=== PATIENT | female | born 1985 | race Two or more races ===

== ENCOUNTER 2016-10-16 07:30 | Inpatient (IN) | payer OTHER ==
[~2016-10-16 07:30] MED LIST: ELECTROLYTE-148 SOLN 1,000 ML IV ONE
[2016-10-16] MEDS ORDERED: CITRIC ACID/SODIUM CITRATE 30 ML UNIT-DOSE CUP PO ONE (08:13)
[2016-10-16] MEDS ORDERED: ELECTROLYTE-148 SOLN 1,000 ML IV SCH (08:15)
--- NOTE | 2016-10-16 09:18 | HP ---
Past Medical History - Admission Chief Complaint: Pt here for repeat c section. History of Present Illness: 31 y/o with SIUP at 39.2 weeks gestataion here for scheduled repeat section. Pt has complicated by A2GDM - has been on Novolog 6 units with meals and 5 units of levimir at night. BG this a.m. 101. BGs have been well controlled. Followed with MFM and Endocrine. Otherwise no other complications. +FM. No Vb/LOF/Ctx. HIV negative. HepBSag negative. O positive. Rubella Immune. History Source: Patient - Past Medical History RN CAMP: No: Alzheimer's, Migraine Cardiovascular: No: AFIB, HTN Pulmonary: No: Asthma, COPD Gastrointestinal: No: GERD Hepatobiliary: No: Cirrhosis, Hepatitis B Reproductive: No: Ectopic , Endometriosis, Fibroids ...: 4 ...Para: 1 ...Term: 1 ...: 0 ...Spon : 2 ...Induced : 0 ...Multiple Gestation: 0 ...LMP: 01/21/16 ... Weeks Gestation by Dates: 38.3 ...EDC by Dates: 10/27/16 ...EDC by Sono: 10/21/16 Infectious Disease: No: AIDS, HIV, MRSA Psych: No: Bipolar, Depression Rheumatology: No: Lupus, Rheumatoid Arthritis Endocrine: Yes: Diabetes Mellitus (gestational) - Past Surgical History Past Surgical History: Yes: Hx Myomectomy: No Hx Transabdominal Cerclage: No - Smoking History Smoking history: Never smoked Have you smoked in the past 12 months: No - Alcohol/Substance Use Hx Alcohol Use: No History of Substance Use: reports: None - Social History Usual Living Arrangement: Yes: With Spouse ADL: Independent History of Recent Travel: No Home Medications - Allergies Allergies/Adverse Reactions: Allergies Allergy/AdvReac Type Severity Reaction Status Date / Time No Known Drug Allergies Allergy Verified 10/16/16 08:17 - Home Medications Home Medications: Ambulatory Orders Pnv Comb.no58/Iron Bisgly/FA [ Capsule] 1 cap PO DAILY 08/22/11 Insulin Aspart [Novolog] 100 unit SQ TID 09/04/16 Insulin (Levemir) [Levemir Flexpen -] 5 units SQ DAILY 10/16/16 Review of Systems - Review of Systems Constitutional: reports: No Symptoms Eyes: reports: No Symptoms HENT: reports: No Symptoms Neck: reports: No Symptoms Cardiovascular: reports: No Symptoms Respiratory: reports: No Symptoms Gastrointestinal: reports: No Symptoms Genitourinary: reports: No Symptoms Breasts: reports: No Symptoms Reported Musculoskeletal: reports: No Symptoms Integumentary: reports: No Symptoms Neurological: reports: No Symptoms Endocrine: reports: No Symptoms Hematology/Lymphatic: reports: No Symptoms Psychiatric: reports: No Symptoms Physical Exam - Maternity Vital Signs: Vital Signs Temperature 97.5 F L 10/16/16 08:25 Pulse Rate 89 10/16/16 08:25 Respiratory Rate 18 10/16/16 08:25 Blood Pressure 120/67 10/16/16 08:25 O2 Sat by Pulse Oximetry (%) Constitutional: Yes: Well Nourished, No Distress, Calm Eyes: Yes: Conjunctiva Clear, EOM Intact HENT: Yes: Atraumatic, Normocephalic Neck: Yes: Supple, Trachea Midline Cardiovascular: Yes: Regular Rate and Rhythm Lungs: Clear to auscultation - Abdominal Exam/OB Number of Fetuses: Single Presentation: Vertex Contractions: No Category: I Accelerations: Uniform Decelerations: None - Vaginal Exam/OB Amniotic Membrane Status: Intact Presentation: Vertex/Position - Physical Exam Psychiatric: Yes: Alert, Oriented Hemorrhage Risk Assessment - Risk Factors Medium Risk Factors: Yes: Prior , uterine surgery,or multiple laparotomies High Risk Factors: Yes: None Risk Score: 1 Risk Level: Medium Risk Problem List - Problems (1) Gestational diabetes mellitus (GDM) affecting second Code(s): O24.419 - GESTATIONAL DIABETES MELLITUS IN , UNSP CONTROL O09.40 - SUPERVISION OF W GRAND MULTIPARITY, UNSP TRIMESTER (2) Term Code(s): Z34.80 - ENCOUNTER FOR SUPRVSN OF NORMAL , UNSP TRIMESTER (3) H/O section Code(s): Z98.891 - HISTORY OF UTERINE SCAR FROM PREVIOUS SURGERY Assessment/Plan 31 y/o with SIUP at 39.2 weeks here for repeat c section - AFVSS - FHTS reactive - A2GDM - hold home insulin, BG this a.m 101 - for repeat c section, NPO, SCDs, ancef preop, siegel catheter - nursing and anesthesia aware
[2016-10-16] MEDS ORDERED: ONDANSETRON 4 MG/2 ML VIAL IVPUSH PRN (09:57)
--- NOTE | 2016-10-16 09:59 | OP ---
Operative Note - Note: Operative Date: 10/16/16 Pre-Operative Diagnosis: Prior section, A2 gestational diabetes, term Operation: repeat low transverse section Findings: normal b/l tubes and ovaries gravid uterus otherwise normal female pelvic anatomy Surgeon: Harriet Friend Metal Dealer: Andrew Mercado Anesthesiologist/CLIMATOLOGY TEACHER: Vinay David Anesthesia: Spinal Specimens Removed: placenta, cord blood collection Estimated Blood Loss (mls): 500 Operative Report Dictated: Yes
[2016-10-16] MEDS ORDERED: oxyCODONE HCL 5 MG TABLET PO PRN (10:00)
[2016-10-16] MEDS: OXYTOCIN 20 UNITS in 0.9% NS 1,000 ML IV SCH ×2 (10:00→22:58)
[2016-10-16] MEDS ORDERED: METHYLERGONOVINE MALEATE 0.2 MG/1 ML AMP IM PRN (10:00)
--- NOTE | 2016-10-16 10:18 | PN ---
Delivery - Delivery Section: Repeat, Low Flap Transverse Type of Anesthesia: Spinal Episiotomy/Laceration: None EBL (cc): 500 Delivery, Single - Stages of Labor Date of Delivery: 10/16/16 Time of Delivery: 09:34 Date Placenta Delivered: 10/16/16 Time Placenta Delivered: :35 Placenta: Yes: Manual Removal - Condition of Book Canvasser/Software Support Analyst Present: Yes Infant Gender: Male Position: Left, OT - 1 Minute Total Score: 9 5 Minutes Total Score: 9 - [place] Feeding Plan Initial Plan: Exclusive throughout hospitalization Remarks - Remarks Remarks: Uncomplicated repeat low transverse section EBL 500cc mom stable baby to well baby nursery
[2016-10-16] MEDS: FERROUS SO4 325 MG TABLET (FP) PO SCH ×2 (11:12→21:28)
--- NOTE | 2016-10-16 12:11 | OP ---
DATE OF OPERATION: 10/16/2016 PREOPERATIVE DIAGNOSIS: Single intrauterine at 39+ weeks' gestation, previous section. POSTOPERATIVE DIAGNOSIS: Single intrauterine at 39+ weeks' gestation, previous section. PROCEDURE: Repeat low transverse section. SURGEON: Harriet Friend DO DYE RANGE OPERATOR: JAMI Quintana ANESTHESIA: Spinal administered by Vinay David MD ESTIMATED BLOOD LOSS: 500 mL. SPECIMENS: Included placenta and cord blood collection. COMPLICATIONS: None. Sponge, needle, and instrument count correct. DISPOSITION: Stable to recovery room. BRIEF HISTORY AND PROCEDURE: The patient is a 31-year-old female with a history of a prior section who declined trial of labor after section. The patient was scheduled for a repeat low transverse section on October 16, 2016. The patient was admitted to [facility] on October 16, 2016. Consents for the procedure were signed upon admission. The patient was then taken back to the operating room. She was given spinal anesthesia by Dr. David without difficulty. She was placed in the dorsal supine position, and a Wills catheter was placed under sterile conditions. She was then prepped and draped in the usual sterile fashion. A hard time-out was performed. A Pfannenstiel skin incision was created in the skin using a scalpel and the incision was carried to the underlying layer of rectus fascia with the scalpel. The rectus fascia was incised on either side of the midline with the Bovie, and the fascial incision was carried in a superolateral direction with the Bovie. The fascia was tented upwards with Marisol clamps and dissected off the underlying layer of rectus muscle. The rectus muscle was identified, bluntly. The peritoneum was entered bluntly, and the bladder blade was inserted. A bladder flap was created, and the bladder blade was readjusted to protect the bladder at this time. A transverse incision was created on the lower uterine segment with the scalpel, and this incision was carried in a superolateral direction bluntly. The was then delivered from the left occiput transverse position without difficulty. Bilateral shoulders and the remainder of the infant was delivered without difficulty. The cord was clamped twice and cut in between. The was taken over to the warmer to be assessed by Neonatology staff who was present for the entire delivery. scores were 9/ 9. The placenta was then delivered manually and intact. The uterus was exteriorized from the abdomen, inspected, and cleared of all amniotic membrane and debris with a dry lap sponge. The hysterotomy was reapproximated in a double-layer closure using Vicryl suture in a running, locked fashion for the first layer and then using 0 Biosyn suture for the imbricating layer. Excellent hemostasis was achieved. The posterior cul-de- sac and bilateral gutters were inspected and cleared of all debris. Bilateral tubes and ovaries were inspected and noted to be within normal limits. The uterus was placed back into the abdomen. The hysterotomy was then reinspected and noted to be hemostatic. The peritoneum was reapproximated using chromic suture in a running fashion. The musculature was reapproximated in 2 interrupted sutures using 0 Biosyn suture. The fascia was reapproximated using 1 Vicryl suture in a running fashion. The subcutaneous tissue was irrigated, and the skin was reapproximated in subcuticular fashion using Vicryl suture. The patient tolerated the procedure well and is recovering in stable condition in the PACU at the time of this dictation. Sponge needle and instrument counts were reported as correct at the end of the case. HARRIET FRIEND DO /[id number] MTDD
[2016-10-16] MEDS: IBUPROFEN 800 MG/8 ML IJ IVPB PRN (21:24)
[2016-10-17] MEDS: IBUPROFEN 800 MG/8 ML IJ IVPB PRN (04:00)
[2016-10-17] MEDS ORDERED: diphenhydrAMINE HCL 25 MG CAPSULE (FP) PO PRN (05:36)
[2016-10-17] MEDS: oxyCODONE HCL 5 MG TABLET PO PRN ×3 (07:54→20:27)
[2016-10-17] MEDS: SIMETHICONE 80 MG TAB.CHEW (FP) PO PRN ×3 (07:54→20:25)
[2016-10-17] MEDS: ACETAMINOPHEN 325 MG TABLET (FP) PO PRN ×2 (07:55→12:34)
--- NOTE | 2016-10-17 08:34 | PN ---
Post Progress Note - Subjective Subjective: Pt seen/evaluated, doing well. Pain controlled, tolerating clears. Not yet ambulating or voiding. Siegel catheter draining clear yellow urine. Pain overall controlled. VB moderate. Denies CP/SOB/F/C/MAHONEY. Type of Delivery: Repeat C/S Vital Signs: Vital Signs Temperature 98.1 F 10/17/16 06:00 Pulse Rate 90 10/17/16 06:00 Respiratory Rate 18 10/17/16 07:00 Blood Pressure 97/64 10/17/16 06:00 O2 Sat by Pulse Oximetry (%) 99 10/16/16 11:40 Breast Exam: Yes: Soft Uterus: Yes: Fundus Firm, Fundus @ umbilicus Incision: Yes: Dressing dry and intact Abdomen/GI: Yes: Abdomen soft, Tender (appropriate post surgical tenderness), Tolerating PO (clears). No: Abdominal Distention, Passing flatus Lochia: Yes: Rubra Lochia, amount: Moderate Extremities: Yes: Calves non-tender. No: Edema Perineum: Yes: Intact Problem List - Problems (1) Gestational diabetes mellitus (GDM) affecting second Code(s): O24.419 - GESTATIONAL DIABETES MELLITUS IN , UNSP CONTROL O09.40 - SUPERVISION OF W GRAND MULTIPARITY, UNSP TRIMESTER (2) H/O section Code(s): Z98.891 - HISTORY OF UTERINE SCAR FROM PREVIOUS SURGERY (3) delivery delivered Code(s): O82 - ENCOUNTER FOR DELIVERY WITHOUT INDICATION Assessment/Plan 31 y/o POD #1 s/p repeat low transverse section - AFVSS - CBC pending - d/c siegel catheter today - advance diet as tolerated - percocet for pain - routine care
[2016-10-17 08:37] LABS: BASOPHIL 0.4 % (0-2.0); EOSINOPHIL 2.1 % (0-4.5); MCH 30.9 pg (25.7-33.7); MCHC 32.6 g/dl (32.0-36.0); MEAN CELL VOLUME 94.6 fl (80-96); MEAN PLT VOLUME 9.6 fl (7.5-11.1); NEUTROPHILS 72.8 % (42.8-82.8); PLATELET COUNT 165 K/MM3 (134-434); RDW 15.2 % (11.6-15.6); WHITE BLOOD COUNT 9.5 K/mm3 (4.0-10.0)
[2016-10-17] MEDS: PRENATAL VITAMINS W/ FOLIC ACID TABLET (FP) PO SCH (09:29)
[2016-10-17] MEDS: FERROUS SO4 325 MG TABLET (FP) PO SCH ×3 (09:29→21:12)
--- NOTE | 2016-10-17 11:47 | PN ---
Progress Note (short form) - Note Progress Note: Anesthesia POD#1 S/P Repeat C-Sections under spinal and duramorph Stable,awake,no pain or N/V issues. Able to ambulate. Excessive itch present. A/P Doing well except itch,benadryl dose can be repeated. Karen Feliciano MD.
[2016-10-17] MEDS: IBUPROFEN 600 MG TABLET (FP) PO PRN ×2 (14:02→20:34)
[2016-10-17] MEDS: SENNOSIDES/DOCUSATE COMBO (SENNA PLUS) TABLET (UD) PO PRN (20:58)
[2016-10-18] MEDS: oxyCODONE HCL 5 MG TABLET PO PRN ×4 (00:24→20:29)
[2016-10-18] MEDS: IBUPROFEN 600 MG TABLET (FP) PO PRN ×4 (00:26→15:48)
[2016-10-18] MEDS: SIMETHICONE 80 MG TAB.CHEW (FP) PO PRN ×5 (00:26→20:30)
--- NOTE | 2016-10-18 08:31 | PN ---
Post Progress Note - Subjective Subjective: Pt doing well. Pain controlled with oral meds. Tolerating diet. Voiding, ambulating. Denies CP/SOB/F/C/MAHONEY. VB minimal to moderate. Type of Delivery: Repeat C/S Vital Signs: Vital Signs Temperature 98 F 10/17/16 22:00 Pulse Rate 94 H 10/17/16 22:00 Respiratory Rate 18 10/17/16 22:00 Blood Pressure 98/65 10/17/16 22:00 O2 Sat by Pulse Oximetry (%) 99 10/16/16 11:40 Breast Exam: Yes: Soft Uterus: Yes: Fundus Firm, Fundus below umbilicus Incision: Yes: Dressing dry and intact, Sutures intact Abdomen/GI: Yes: Abdomen soft, Tender (appropriately tender post op), Passing flatus, Tolerating PO. No: Abdominal Distention Lochia: Yes: Rubra Lochia, amount: Small Extremities: Yes: Calves non-tender. No: Edema Perineum: Yes: Intact Activity: Ambulating - Labs Labs: CBC WBC 9.5 K/mm3 (4.0-10.0) 10/17/16 07:50 RBC 3.50 M/mm3 (3.60-5.2) L 10/17/16 07:50 Hgb 10.8 GM/dL (10.7-15.3) 10/17/16 07:50 Hct 33.2 % (32.4-45.2) 10/17/16 07:50 MCV 94.6 fl (80-96) 10/17/16 07:50 MCHC 32.6 g/dl (32.0-36.0) 10/17/16 07:50 RDW 15.2 % (11.6-15.6) 10/17/16 07:50 Plt Count 165 K/MM3 (134-434) 10/17/16 07:50 MPV 9.6 fl (7.5-11.1) 10/17/16 07:50 Neutrophils % 72.8 % (42.8-82.8) 10/17/16 07:50 Lymphocytes % 16.4 % (8-40) D 10/17/16 07:50 Monocytes % 8.3 % (3.8-10.2) 10/17/16 07:50 Eosinophils % 2.1 % (0-4.5) 10/17/16 07:50 Basophils % 0.4 % (0-2.0) 10/17/16 07:50 Problem List - Problems (1) Gestational diabetes mellitus (GDM) affecting second Assessment/Plan: Resolved Code(s): O24.419 - GESTATIONAL DIABETES MELLITUS IN , UNSP CONTROL O09.40 - SUPERVISION OF W GRAND MULTIPARITY, UNSP TRIMESTER (2) H/O section Code(s): Z98.891 - HISTORY OF UTERINE SCAR FROM PREVIOUS SURGERY (3) delivery delivered Code(s): O82 - ENCOUNTER FOR DELIVERY WITHOUT INDICATION Assessment/Plan 31 y/o POD #2 s/p repeat low transverse section - AFVSS - Hgb 10.8 post op - regular diet, PO pain meds, percocet and Motrin for pain - routine care
[2016-10-18] MEDS: FERROUS SO4 325 MG TABLET (FP) PO SCH ×2 (09:30→21:25)
[2016-10-18] MEDS: PRENATAL VITAMINS W/ FOLIC ACID TABLET (FP) PO SCH (09:31)
[2016-10-18] MEDS: BISACODYL 10 MG SUPP.RECT RC PRN (15:49)
[2016-10-18] MEDS: ACETAMINOPHEN 325 MG TABLET (FP) PO PRN (20:29)
[2016-10-18] MEDS: SENNOSIDES/DOCUSATE COMBO (SENNA PLUS) TABLET (UD) PO PRN (21:25)
[2016-10-19] MEDS: ACETAMINOPHEN 325 MG TABLET (FP) PO PRN ×3 (00:12→19:50)
[2016-10-19] MEDS: oxyCODONE HCL 5 MG TABLET PO PRN ×5 (00:13→21:34)
[2016-10-19] MEDS: SIMETHICONE 80 MG TAB.CHEW (FP) PO PRN ×5 (00:13→19:51)
--- NOTE | 2016-10-19 08:11 | PN ---
Post Progress Note - Subjective Subjective: 31 yo Para 2, status post repeat , seen and evaluated. Doing well. She's breast feeding. Post Day: 3 Type of Delivery: Repeat C/S Vital Signs: Vital Signs Temperature 98.7 F 10/18/16 22:00 Pulse Rate 84 10/18/16 22:00 Respiratory Rate 18 10/18/16 22:00 Blood Pressure 109/63 10/18/16 22:00 O2 Sat by Pulse Oximetry (%) 99 10/16/16 11:40 Breast Exam: Yes: Soft Uterus: Yes: Fundus Firm Incision: Yes: Dressing dry and intact Abdomen/GI: Yes: Abdomen soft, Tolerating PO Lochia: Yes: Rubra Lochia, amount: Small Extremities: Yes: Calves non-tender Perineum: Yes: Intact Activity: Ambulating - Labs Labs: CBC WBC 9.5 K/mm3 (4.0-10.0) 10/17/16 07:50 RBC 3.50 M/mm3 (3.60-5.2) L 10/17/16 07:50 Hgb 10.8 GM/dL (10.7-15.3) 10/17/16 07:50 Hct 33.2 % (32.4-45.2) 10/17/16 07:50 MCV 94.6 fl (80-96) 10/17/16 07:50 MCHC 32.6 g/dl (32.0-36.0) 10/17/16 07:50 RDW 15.2 % (11.6-15.6) 10/17/16 07:50 Plt Count 165 K/MM3 (134-434) 10/17/16 07:50 MPV 9.6 fl (7.5-11.1) 10/17/16 07:50 Neutrophils % 72.8 % (42.8-82.8) 10/17/16 07:50 Lymphocytes % 16.4 % (8-40) D 10/17/16 07:50 Monocytes % 8.3 % (3.8-10.2) 10/17/16 07:50 Eosinophils % 2.1 % (0-4.5) 10/17/16 07:50 Basophils % 0.4 % (0-2.0) 10/17/16 07:50 Assessment/Plan Status post repeat Stable Continue routine post op care
[2016-10-19 09:18] LABS: BASOPHIL 0.5 % (0-2.0); EOSINOPHIL 3.9 % (0-4.5); MCH 31.4 pg (25.7-33.7); MCHC 33.5 g/dl (32.0-36.0); MEAN CELL VOLUME 93.8 fl (80-96); MEAN PLT VOLUME 9.7 fl (7.5-11.1); NEUTROPHILS 55.9 % (42.8-82.8); PLATELET COUNT 230 K/MM3 (134-434); RDW 14.8 % (11.6-15.6); WHITE BLOOD COUNT 8.4 K/mm3 (4.0-10.0)
[2016-10-19] MEDS: PRENATAL VITAMINS W/ FOLIC ACID TABLET (FP) PO SCH (09:48)
[2016-10-19] MEDS: FERROUS SO4 325 MG TABLET (FP) PO SCH ×2 (09:48→21:22)
[2016-10-19] MEDS: IBUPROFEN 600 MG TABLET (FP) PO PRN ×3 (09:50→19:51)
[2016-10-19] MEDS ORDERED: oxyCODONE HCL 5 MG TABLET ONE (15:09)
[2016-10-19] MEDS: BISACODYL 10 MG SUPP.RECT RC PRN (21:27)
[2016-10-20] MEDS: ACETAMINOPHEN 325 MG TABLET (FP) PO PRN ×2 (01:59→10:56)
[2016-10-20] MEDS: oxyCODONE HCL 5 MG TABLET PO PRN ×2 (01:59→08:30)
[2016-10-20] MEDS: SIMETHICONE 80 MG TAB.CHEW (FP) PO PRN ×2 (01:59→08:30)
[2016-10-20] MEDS: IBUPROFEN 600 MG TABLET (FP) PO PRN (08:30)
[2016-10-20 09:59] VITALS: BP 111/68; PULSE 102; TEMP 97.6
[2016-10-20] MEDS: PRENATAL VITAMINS W/ FOLIC ACID TABLET (FP) PO SCH (10:52)
[2016-10-20] MEDS: FERROUS SO4 325 MG TABLET (FP) PO SCH (10:52)
--- NOTE | 2016-10-20 13:33 | PATH ---
Surgical Pathology Report Patient Name: JORDY BARKSDALE Med. Rec. #: [id number] /Age/Gender: 1985 (Age: 31) / F Account: [id number] Location: [facility] OBS/SECURITY TECH Taken: 10/16/2016 Received: 10/17/2016 Reported: 10/20/2016 Physicians: Harriet Friend M.D. Specimen(s) Received PLACENTA Clinical History , 39.2 weeks, for repeat c/section Repeat c/section Final Diagnosis PLACENTA, DELIVERY: FOCALLY DISRUPTED THIRD TRIMESTER PLACENTA WITH FOCAL INFARCT, MILD TO MODERATE PREVILLOUS, PERIVILLOUS, AND PRECHORIONIC FIBRIN DEPOSITION, THREE VESSEL UMBILICAL CORD, AND PLACENTAL MEMBRANES WITH FOCAL LAMELLAR NECROSIS. Electronically Signed Ayad Florentino M.D. Gross Description The specimen is received fresh, labeled "placenta" and is a 506 gram, 17.0 x 14.5 x 2.5 cm placenta with attached membranes and umbilical cord. The attached membranes are santamaria, thickened and insert marginally. The umbilical cord measures 23 cm in length and averages 1.3 cm in diameter. The cord inserts eccentrically, 5 cm to the nearest margin. No true knots or strictures are identified. Cut surface of the umbilical cord reveals 3 vessels. The surface is candelario-blue with fibrin deposition and appropriate caliber vessels. The maternal surface is red-brown with focal defects. Sectioning reveals 1 cm in greatest dimension focal santamaria firm lesion. The remaining placental parenchyma is red-brown and spongy. Crop And Soil Technician sections are submitted in 4 cassettes as follows: 1-membrane rolls and umbilical cord; 2-lesion; 3-4-full thickness sections of placenta. 10/19/2016 [facility]
--- NOTE | 2016-12-06 21:32 | DS ---
Physical Exam-CORRUGATED BOX MACHINE OPERATOR Vital Signs: Vital Signs Temperature 97.6 F 10/20/16 09:30 Pulse Rate 102 H 10/20/16 09:30 Respiratory Rate 20 10/20/16 09:30 Blood Pressure 111/68 10/20/16 09:30 O2 Sat by Pulse Oximetry (%) 99 10/16/16 11:40 Labs: CBC, BMP 10/19/16 08:45 Delivery - Delivery Section: Repeat, Low Flap Transverse Type of Anesthesia: Spinal Episiotomy/Laceration: None EBL (cc): 500 Delivery, Single - Stages of Labor Date of Delivery: 10/16/16 Time of Delivery: 09:34 Date Placenta Delivered: 10/16/16 Time Placenta Delivered: 09:35 Placenta: Yes: Manual Removal - Condition of Infant Architect Marine/Special Client Bus Driver Present: Yes Name: Jeannine Long Infant Gender: Male Weight: 7 lb 15 oz Position: Left, OT Total Hours ROM (Hrs/Mins): 0/1 - 1 Minute Total Score: 9 5 Minutes Total Score: 9 - [place] Feeding Plan Initial Plan: Exclusive throughout hospitalization Discharge Summary Reason For Visit: C/SECTION Procedures: Principal: Repeat delivery Hospital Course: Uncomplicated post /post operative course. Patient discharged home in stable condition on post operative day 3. Condition: Good - Instructions Diet, Activity, Other Instructions: Physical activity Resume your normal everyday activity as tolerated but no heavy lifting or exercise until seen by your surgeon. You may walk unlimited amounts and climb stairs. You may resume driving the car when you feel safe and comfortable behind the wheel. No sexual activity as instructed by your doctor. Wound care If you have a bandage, leave it on, and keep dry for 48-72 hours. After that time discard the outer bandage. If there are tapes on the skin leave them in place. They will peel off in the next 7 to 10 days. Do Not Peel them off. You may shower the day after surgery. If there are tapes present on the skin, you may shower over them. Diet There are no dietary restrictions. Eat healthy, high-fiber foods. Drink 6 to 8 glasses of liquid each day. This will assist in keeping your bowels regular. Pain management You may take Tylenol or Ibuprofen (for example, Motrin, Advil etc.) for mild to moderate pain. You may take any prescription pain medication as directed for moderate to severe pain Call MD for any of the following: Severe pain not relieved by medication Fever of 101 or higher Excessive bleeding or drainage on dressing Inability to urinate Referrals: Harriet Friend DO [Staff Physician] - Disposition: HOME - Home Medications Comprehensive Discharge Medication List: Ambulatory Orders Pnv Comb.no58/Iron Bisgly/FA [ Capsule] 1 cap PO DAILY 08/22/11 Insulin Aspart [Novolog] 100 unit SQ TID 09/04/16 Insulin (Levemir) [Levemir Flexpen -] 5 units SQ DAILY 10/16/16 Oxycodone HCl/Acetaminophen [Percocet 5-325 mg Tablet -] 1 tab PO Q4H #30 tablet MDD 6 10/19/16
== END 2016-10-20 11:20 | disposition home or self-care (01) | DRG 540 ==
LOC: JLDR 07:30 → J3W 11:59
PROVIDERS: ADMIT Obstetrics & Gynecology; ATTEND Obstetrics & Gynecology
PROC: 10D00Z1 Extraction of Products of Conception, Low, Open Approach (ICD-10-PCS; principal; 2016-10-16)
DX: O34.211 Maternal care for low transverse scar from previous cesarean delivery (principal); O24.424 Gestational diabetes mellitus in childbirth, insulin controlled; Z3A.39 39 weeks gestation of pregnancy; Z37.0 Single live birth
CPT/HCPCS: 36415; 85025; 88307-TC